=== PATIENT | female | born 1955 | race Caucasian/White ===

== ENCOUNTER 2017-02-04 11:19 | Inpatient (IN) ==
[2017-02-04] MEDS ORDERED: VANCOMYCIN IV PER PHARMACY MISC SCH (12:30)
[2017-02-04] MEDS ORDERED: NS 1,000 ML IV SCH (12:30)
[2017-02-04] MEDS ORDERED: FLAGYL 500 MG/NS 500 MG/100 ML IVPB IV SCH (13:00)
[2017-02-04] MEDS ORDERED: LEVAQUIN 500 MG/D5W 500 MG/100 ML IVPB IV SCH (13:15)
[2017-02-04 13:20] LABS: MANUAL DIFF NEEDED? NO
--- NOTE | 2017-02-04 13:24 | HISTORY AND PHYSICAL ---
61-year-old, white female, presented to our clinic with a right perirectal swelling. Patient had an incision and drainage was done on Tuesday and the pack was removed today. It showed a black eschar with a lot of induration. No evidence of discharge noted. Patient is diabetes noncompliance. She failed to improve with outpatient medical management and going to impending Mary's gangrene. She needs more debridement, IV antibiotics, control the sugar. As a result, a hospital admission was warranted. I discussed with Dr. De Anda and he is going to do the debridement today. As a result, a hospital admission was warranted. PAST MEDICAL HISTORY: Diabetes, COPD, tobacco abuse. PAST SURGICAL HISTORY: Tonsillectomy, hysterectomy, tubal ligation. MEDICINES: Aspirin, lisinopril, glipizide 5 mg daily, lisinopril 5 mg daily. ALLERGIES: Penicillin and reaction to shock, unconsciousness. Celebrex skin rashes and hives. SOCIAL HISTORY: , 2 children. 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 Smoking half a pack a day since 1976. Lives in [place]. No alcohol. FAMILY HISTORY: Father of heart attack at 79. Mom of throat cancer at 60. REVIEW OF SYSTEMS: HEENT: No headache. No vision problem. No earache. No sore throat. Neck: No goiter. No neck pain. No lymphadenopathy. Cardiopulmonary: No chest pain, shortness of breath, PND, orthopnea. Swelling of feet. GI: No nausea, vomiting, abdominal pain, altered bowel habits. No bleeding per rectum or hemorrhoids seen. : No history of hesitancy, frequency, dysuria, hematuria, swelling in the right perirectal area. No claudication symptoms. No swelling of legs. No joint pain. Neurologic: No focal symptoms or weakness. EXAMINATION: She is afebrile. Vitals are stable.HEENT: Within normal limits. Neck: Supple. No lymphadenopathy. No goiter. Chest: Bilateral air entry. Heart: Sounds are regular. Abdomen: Belly is soft, nontender. Good bowel sounds. No masses palpable. Right perirectal area a lot of induration with black eschar noted. Iodoform gauze pack was removed and a lot of induration seen and tenia cruris present and hemorrhoids seen. Extremities: No signs of gangrene. No obvious neurological deficits. INVESTIGATIONS: Pending. ASSESSMENT AND PLAN: 1. Right perirectal abscess. Impending Mary's gangrene. Needs more debridement. Plan is IV antibiotics with vancomycin since the patient is allergic to penicillin with anaphylactic shock and Flagyl. 2. Diabetes on glipizide. Follow up on A1c and sliding scale with insulin coverage. 3. COPD, chronic tobacco abuse. Quit smoking. 4. Reconcile home medications. Discussed with the Dr. Kip De Anda for surgical consult for debridement and will follow up. cc: Sebas Buenrostro MD
[2017-02-04 13:25] LABS: BASO% 0.7 % (0.0-0.8); EOS# 0.07 X1000 (0.0-0.7); EOS% 0.7 % (0.0-10.0); HEMATOCRIT 39.5 % (37.0-47.0); HEMOGLOBIN 13.3 g/dL (12.0-16.0); IMM GRAN# 0.07 X1000 (0.0-0.04); IMM GRAN% 0.7 % (0.0-0.5); LYMPH# 1.52 X1000 (1.2-3.4); LYMPH% 15.3 % (20.5-51.1); MCH 29.8 PG (27-31); MCHC 33.7 g/dL (33-37); MCV 88.4 FL (81-99); MONO# 0.75 X1000 (0.11-0.59); MONO% 7.5 % (1.7-9.3); MPV 11.4 FL (7.4-10.4); NEUT% 75.1 % (42.2-75.2); PLT 295 X1000 (130-400); RBC 4.47 XMIL (4.2-5.4)
[2017-02-04 13:31] LABS: INR 0.99; PROTIME 10.4 Seconds (9.2-11.7)
--- NOTE | 2017-02-04 13:35 | EKG Report ---
Test Performed on : 02/04/2017 1:17:45 PM Test Reason : preop Blood Pressure : / mmHG Vent. Rate : 085 BPM Atrial Rate : 085 BPM P-R Int : 112 ms QRS Dur : 098 ms QT Int : 388 ms P-R-T Axes : 066 012 013 degrees QTc Int : 461 ms Normal sinus rhythm. Possible Left atrial enlargement Borderline ECG No previous ECGs available Confirmed by Alesha VENEGAS, Rishi Mancilla ([id number]) on 02/04/2017 3:32:09 PM
[2017-02-04 13:55] LABS: ALBUMIN 3.4 g/dL (3.5-5.0); CALCIUM 8.9 mg/dL (8.8-10.2); POTASSIUM 4.1 mmol/L (3.5-5.1); TOTAL BILIRUBIN 0.24 mg/dL (0.20-1.00); TOTAL PROTEIN 7.5 g/dL (6.3-8.3)
--- NOTE | 2017-02-04 14:18 | Diag Imaging Result Doc PS360 ---
EXAM: CHEST-2 VIEWS HISTORY: SOB TECHNIQUE: PA and lateral chest COMMENT: There is no evidence of acute cardiac or pulmonary disease and there are no previous studies. IMPRESSION: No acute disease. Electronically signed by Anish Chavez 02/04/2017 2:16 PM
[2017-02-04] MEDS ORDERED: HUMULIN R IV ONE (14:26)
[2017-02-04] MEDS: AZACTAM 1 GM in NS 50 ML IV SCH ×2 (15:31→23:47)
[2017-02-04] MEDS: HUMULIN R SUBQ SCH ×2 (15:35→20:01)
[2017-02-04] MEDS ORDERED: VANCOMYCIN 1.3 GM in NS 250 ML IV ONE (16:00)
--- NOTE | 2017-02-04 16:58 | CONSULTATION ---
DATE OF CONSULTATION: 02/04/2017 CONCLUSION: The patient has gangrenous cellulitis of the perineum and an abscess as well. The patient has a severe penicillin allergy manifested by respiratory arrest . RECOMMENDATIONS: I agree with treating the patient with vancomycin and Flagyl. I have discontinued Levaquin and placed the patient on aztreonam. I have further ordered that the nurse watch the patient during the first dose of aztreonam. DISCUSSION: The patient approximately 10 days ago developed a mass in the perineum. It was painful . She went to outpatient clinic. It was in that outpatient clinic the area had an incision and drainage of what the patient described as an abscess. She was placed on p.o. Levaquin. She came back again to another outpatient service and she was directed to be admitted to the hospital. She is to have surgery later today performed by Dr. Kip De Anda. LABORATORY STUDIES: Thus far show a CBC with a white count of 9950, hemoglobin 12.3, and platelet count 295,000. Creatinine is 1.1. GFR is 50. Glucose was at 486. Chest x-ray showed no acute disease. PAST MEDICAL HISTORY, REVIEW OF SYSTEMS: Eyes and ears: Patient denies difficulty hearing or seeing. Neck: No stiffness. Respiratory: No cough or shortness of breath. Cardiac: No chest pain or palpitations. GI: No nausea, vomiting, or diarrhea. : No dysuria or flank pain. Endocrine: Patient is a diabetic but she does not have thyroid disease. Hematologic: No history of anemia or bleeding tendency. Neurologic: No seizures. No motor or sensory loss. Integument: No rash. The remainder of the patient's review of systems was completed and was negative. 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 She has had a hysterectomy and bilateral salpingo-oophorectomy. PREVIOUS HOSPITALIZATIONS AND OPERATIONS: She has had prior drainage of her perineal abscess. She has had 2 labor and deliveries, a hysterectomy and bilateral salpingo-oophorectomy. MEDICAL DISEASES: Positive for diabetes mellitus and hypertension. INFECTIOUS DISEASE HISTORY: Positive for UTI. Negative for pneumonia. FAMILY HISTORY: Patient is adopted. She does know her sister and her sister has rheumatoid arthritis. SOCIAL HISTORY: [place] She is . She has 4 dogs for pets. ALLERGIES: She is allergic to penicillin manifested by respiratory arrest. MEDICATIONS: At home she takes glipizide and lisinopril regularly. More recently because of the patient's perineal infection she has been on Allamuchy for pain and Levaquin for infection. HABITS: The patient does not smoke cigarettes, drink alcoholic beverages or abuse drugs. PHYSICAL EXAMINATION: Vital signs: Temperature is 98.8 degrees, pulse 89, respirations 16, blood pressure 126/63. Patient weighs 116 pounds. Generally: She is a fairly healthy middle- aged female who is in no acute distress. Head, eyes, ears, nose, and throat: She can hear my spoken words and see near objects. No drainage noted from the nose or ears. Neck: No meningismus. Thorax: No increased AP diameter to the chest. Lungs: Clear to auscultation. Cardiovascular: Heart rate was regular. I had could not feel peripheral pulses in the legs well but the legs were warm and not cyanotic. Abdomen: Soft and nontender. Heart rate is regular. Pelvic exam: In the perineum there was erythema, swelling and a necrotic area. Neurologic: Patient is alert. She can move her extremities. There is no tremor. Her sensation is intact to touch. Her memory, as regarding her medical history is good. Thank you for the consult. cc: MD Sebas Prabhakar MD
[2017-02-04] MEDS ORDERED: HYDROGEN PEROXIDE SOLUTION ONE (17:42)
[2017-02-04] MEDS ORDERED: D5 LR 1,000 ML ONE (18:17)
[2017-02-04] MEDS: MORPHINE ONE ×2 (18:29→18:32)
[2017-02-04 18:39] LABS: URINE CULTURE NEEDED? NO; URINE MICRO REVIEW NEEDED? NO; URINE SOURCE CATH
[2017-02-04] MEDS ORDERED: MORPHINE ONE ×2 (18:42→18:51)
[2017-02-04 18:43] LABS: BILIRUBIN URINE NEGATIVE (NEGATIVE); BLOOD URINE NEGATIVE (NEGATIVE); COLOR YELLOW; GLUCOSE URINE >1000 mg/dL (NEGATIVE); LEUKOCYTES URINE NEGATIVE (NEGATIVE); NITRITE URINE NEGATIVE (NEGATIVE); PH URINE 5.5; PROTEIN URINE NEGATIVE (NEGATIVE); SP GRAVITY URINE 1.031; TURBIDITY URINE CLEAR (CLEAR); UR EPITHELIAL CELLS <10 /HPF (<10); URINE BACTERIA NEGATIVE /HPF; URINE RBC <10 /HPF (<10); URINE WBC <10 /HPF (<10); UROBILINOGEN URINE NORMAL (NORMAL)
[2017-02-04] MEDS ORDERED: D5 LR 1,000 ML IV SCH (19:00)
[2017-02-04] MEDS ORDERED: 1/2 NS 1,000 ML IV SCH (19:00)
[2017-02-04] MEDS ORDERED: FENTANYL ONE (19:23)
[2017-02-04] MEDS ORDERED: DIPRIVAN 1% ONE (19:49)
--- NOTE | 2017-02-04 20:24 | OPERATIVE NOTE ---
PROCEDURE DATE: 02/04/2017 PREOP: Gangrenous changes, perineal wound. PROCEDURE: Debride necrotic perineal wound 5 x 4 x 3 cm with placement of wound vacuum-assisted closure. DESCRIPTION OF PROCEDURE: The patient brought to the operating room. After satisfactory induction of IV and endotracheal anesthesia, Solomon catheter, her perineum was prepped and draped in the appropriate manner. Solomon catheter was placed. The necrotic area was in the right side of the perineum with labial infection. There was significant subcutaneous necrosis and undermining with muscle and fat necrosis as well as skin. The necrotic tissue was sharply debrided. The wound tracks down towards the rectum and is probably representing a fistula. All necrotic material visualized was removed as well as necrotic skin. Hemostasis was obtained by electrocautery. The wound was irrigated with peroxide. Anaerobic and aerobic cultures had been obtained. A wound VAC was subsequently deployed with stoma paste for a satisfactory seal being obtained. The patient had the Solomon left in place. She was subsequently awakened and extubated in the operating room and transferred to recovery. ESTIMATED BLOOD LOSS: Was about 30-40 mL. cc: MD Sebas Flores MD
[2017-02-04] MEDS: FLAGYL 1000 MG/NS 1,000 MG/200 ML IVPB IV SCH (22:19)
[2017-02-05] MEDS: MORPHINE IV PRN (02:52)
[2017-02-05] MEDS: ZOFRAN IV PRN ×2 (02:53→06:43)
[2017-02-05] MEDS: FLAGYL 1000 MG/NS 1,000 MG/200 ML IVPB IV SCH ×3 (05:42→21:10)
[2017-02-05] MEDS: HUMULIN R SUBQ SCH ×4 (06:25→21:06)
[2017-02-05 06:27] LABS: HEMATOCRIT 35.8 % (37.0-47.0); HEMOGLOBIN 11.8 g/dL (12.0-16.0); MCH 29.9 PG (27-31); MCV 90.6 FL (81-99); MPV 11.8 FL (7.4-10.4); RBC 3.95 XMIL (4.2-5.4)
[2017-02-05 06:42] LABS: AGAP 14; BUN 10 mg/dL (8-22); CALCIUM 8.2 mg/dL (8.8-10.2); CHLORIDE 100 mmol/L (98-107); COSMO 285; POTASSIUM 3.8 mmol/L (3.5-5.1); SODIUM 137 mmol/L (136-145); TCO2 23 mmol/L (25-35)
[2017-02-05] MEDS: AZACTAM 1 GM in NS 50 ML IV SCH ×3 (06:45→23:01)
[2017-02-05] MEDS: NORCO-10 PO PRN ×2 (08:43→16:06)
[2017-02-05] MEDS: PRINIVIL PO SCH (10:04)
[2017-02-05] MEDS: GLUCOTROL PO SCH ×2 (10:05→21:10)
[2017-02-05] MEDS: D5 LR 1,000 ML IV SCH ×2 (13:38→23:01)
--- NOTE | 2017-02-05 15:38 | PROGRESS NOTE ---
DATE: 02/05/2017 SUBJECTIVE: Patient is sitting up in bed eating a good lunch. She says she is doing better. OBJECTIVE: vital signs Afebrile. Pulse 73, respirations 16, blood pressure 129/53, O2 saturation on room air to nasal cannula 95-97%.CV: RRR. Cannot rule out a faint 1/6 murmur. Lungs: CTA. Abdomen: Nontender. Extremities: No calf tenderness, cords or edema. LABORATORY STUDIES: Sodium 137, potassium 3.8, chloride 100, CO2 23, BUN 10, creatinine 0.7. Blood sugars ranging 137-486. White count 9.9, hemoglobin 11.8, platelets 248,000. ASSESSMENT: 1. Gangrenous cellulitis of the perineum with abscess formation status post debridement per Dr. De Anda yesterday. 2. Type 2 diabetes mellitus. 3. Hypertension. 4. Chronic obstructive pulmonary disease. 5. Tobacco abuse. PLAN: Continue aztreonam, Flagyl and vancomycin per Dr. Cale Hernandez' recommendation. Decreased down the D5 LR she is on due to her diabetes. Dr. De Anda has placed her back on her glipizide but plans on re-debridement of the area in 2 days. Will take her off that prior to that. Continue sliding scale insulin. Again reduce the IV rate so as not to precipitate hyperglycemia to a great extent during this. Continue antibiotics. cc: MD Sebas Haney MD
[2017-02-05] MEDS: VANCOMYCIN 1 GM/NS 1 GM/250 ML IVPB IV SCH (17:24)
[2017-02-06] MEDS: ZOFRAN IV PRN ×3 (00:03→23:46)
[2017-02-06] MEDS ORDERED: PHENERGAN PR PRN (02:21)
[2017-02-06] MEDS ORDERED: PHENERGAN IV PRN (02:39)
[2017-02-06] MEDS ORDERED: SODIUM CHLORIDE 0.9% INJ PRN (02:40)
[2017-02-06] MEDS ORDERED: VANCOMYCIN 1 GM/NS 1 GM/250 ML IVPB IV SCH (04:00)
[2017-02-06] MEDS: FLAGYL 1000 MG/NS 1,000 MG/200 ML IVPB IV SCH ×3 (05:21→21:33)
[2017-02-06] MEDS: AZACTAM 1 GM in NS 50 ML IV SCH ×3 (06:20→23:46)
[2017-02-06] MEDS: HUMULIN R SUBQ SCH ×4 (06:20→21:33)
[2017-02-06] MEDS: PRINIVIL PO SCH (10:41)
[2017-02-06] MEDS: GLUCOTROL PO SCH (10:42)
[2017-02-06] MEDS: NORCO-10 PO PRN ×2 (10:42→23:17)
--- NOTE | 2017-02-06 14:26 | PROGRESS NOTE ---
DATE: 02/06/2017 SUBJECTIVE: Patient is having some nausea and vomiting x1 only occurring around midnight each morning. Otherwise doing well. Seems to be in response to IV antibiotics she receives prior to the onset of her nausea. OBJECTIVE: Vital signs: Afebrile, pulse 85, respirations 17, blood pressure 144/75, O2 saturation on room air 97%. CV: RRR without murmur. Lungs: CTA. Abdomen: Soft, nontender. No mass or organomegaly. Extremities: No calf tenderness, cords, or edema. ASSESSMENT: 1. Gangrenous cellulitis peritoneum with previous abscess formation status post debridement and incision and drainage of abscess per Dr. De Anda a couple days ago. 2. Nausea and vomiting. Likely related to aztreonam or Flagyl as being given around 11 p.m. nightly. 3. Type 2 diabetes mellitus. 4. Hypertension. 5. Chronic obstructive pulmonary disease. 6. Tobacco abuse. PLAN: Dr. De Anda has ordered Phenergan as needed for nausea and vomiting. It appears she will have to take these antibiotics for now so will treat that nausea with Phenergan as required. Going to hold her Glucotrol as there is consideration for re-debridement of the perineal area tomorrow per Dr. De Anda. Will continue SSI to control her blood sugars at this point in time, as she may be NPO for some period. Continue IV antibiotics currently being administered. cc: MD Sebas Haney MD
[2017-02-06] MEDS: VANCOMYCIN 1 GM/NS 1 GM/250 ML IVPB IV SCH (18:04)
[2017-02-06] MEDS: D5 LR 1,000 ML IV SCH (23:46)
[2017-02-07] MEDS: FLAGYL 1000 MG/NS 1,000 MG/200 ML IVPB IV SCH (05:05)
[2017-02-07] MEDS: ZOFRAN IV PRN (06:26)
[2017-02-07] MEDS: AZACTAM 1 GM in NS 50 ML IV SCH (06:26)
[2017-02-07] MEDS: HUMULIN R SUBQ SCH ×5 (06:33→21:27)
--- NOTE | 2017-02-07 09:05 | PROGRESS NOTE ---
DATE: 02/07/2017 SUBJECTIVE: Interval history was reviewed. Patient was seen by Dr. Hernandez and Dr. De Anda. Debridement of the right perirectal abscess done. Wound cultures grew micrococcus species. Complains of nausea from IV antibiotic, aztreonam. REVIEW OF SYSTEMS: The patient has been n.p.o. All none reported. PHYSICAL EXAMINATION: Vital Signs: She is afebrile. Vitals are stable. HEENT: Within normal limits. Neck: Supple. No lymphadenopathy. No goiter. Chest: Bilateral air entry. Heart: Sounds are regular. Abdomen: Belly is soft, nontender. Good bowel sounds. No masses palpable. Extremities: No peripheral edema or cyanosis. Integument: Wound VAC was seen on the right perianal area. INVESTIGATIONS: A1c was 15.0. Blood sugars are running high. Wound cultures micrococcus. Chest x-ray, no acute disease. ASSESSMENT AND PLAN: 1. Right perirectal abscess. Impending gangrene. Continue on IV vancomycin and Flagyl. Waiting for second debridement. 2. Uncontrolled diabetes. Currently on sliding scale with insulin coverage. 3. Nausea from aztreonam, will discontinue. Discuss with Dr. Hernandez. Once again thanks for Dr. Hernandez and Dr. De Anda consults. Discussed with the family and will follow up. cc: Sebas Buenrostro MD
[2017-02-07] MEDS ORDERED: LR 1,000 ML ONE ×2 (09:18→12:21)
[2017-02-07] MEDS ORDERED: XYLOCAINE-MPF 2% ONE ×2 (09:18→12:21)
--- NOTE | 2017-02-07 11:04 | PROGRESS NOTE ---
DATE: 02/07/2017 PRESENT ILLNESS: The patient has a perineal cellulitis and abscess. Also, there was an area of necrosis her as well. This is all been surgically treated by Dr. De Anda. MEDICATIONS: The patient was on vancomycin and Flagyl and aztreonam. The patient had extreme nausea after getting aztreonam. PHYSICAL EXAMINATION: Vital Signs: Temperature is 98.1 degrees, pulse 83, respirations 16, blood pressure 162/66. Generally: The patient looks comfortable. She is in no acute distress. Lungs: Clear to auscultation. Cardiovascular: Regular heart rate. Abdomen: Soft and nontender. Pelvic exam: The perineum was less swollen and erythematous. The VAC is in place over the wound. LABORATORY AND X-RAY: Culture from the perineal abscess grew micrococcus. The patient's CBC today shows a white count of 9910, hemoglobin 11.8, and platelet count 248,000. Creatinine is 0.7. GFR is greater than 60. As mentioned above, the culture grew micrococcus. ASSESSMENT AND PLAN: The patient has had surgical treatment of her perineal cellulitis abscess and necrosis. Overall she is improving. I agree with Dr. Buenrostro stopping the patient's aztreonam because it caused the patient to have so much nausea, and in addition, we have not isolated any gram-negative deacon organism. Also the anaerobic cultures are negative. Therefore, I think we can stop Flagyl and continue treatment with vancomycin as a single agent. COMORBIDITIES: The patient is a diabetic. cc: MD Sebas Prabhakar MD MTDD
[2017-02-07] MEDS ORDERED: DIPRIVAN 1% ONE (12:10)
[2017-02-07] MEDS ORDERED: TORADOL ONE (12:21)
[2017-02-07] MEDS ORDERED: NS 500 ML ONE (12:21)
[2017-02-07] MEDS ORDERED: NS 1,000 ML ONE (12:21)
[2017-02-07] MEDS ORDERED: MORPHINE ONE (12:34)
[2017-02-07] MEDS: PRINIVIL PO SCH (13:07)
[2017-02-07] MEDS: VANCOMYCIN 1 GM/NS 1 GM/250 ML IVPB IV SCH (17:21)
--- NOTE | 2017-02-07 17:41 | OPERATIVE NOTE ---
PROCEDURE DATE: 02/07/2017 PREOPERATIVE DIAGNOSIS: History of gangrene of the perineum. PROCEDURE: Wound vacuum assisted closure removal, bit of further debridement, but basically major improvement since last week. SURGEON: Kip De Anda MD DESCRIPTION OF PROCEDURE: The patient was brought to the operating room. After satisfactory induction of IV and LMA anesthesia, [facility]. The wound VAC was removed revealing satisfactory granulation tissue and only minimal amounts of further necrosis. This was prepped, draped, sharply debrided. The wound VAC was redeployed with satisfactory seal. The patient was subsequently awakened and extubated in the operating room and transferred to recovery. cc: MD Sebas Flores MD
[2017-02-07] MEDS: PERIDEX MT SCH (21:22)
[2017-02-07] MEDS: NORCO-10 PO PRN (23:00)
[2017-02-08] MEDS: HUMULIN R SUBQ SCH ×4 (06:28→20:14)
--- NOTE | 2017-02-08 07:15 | PROGRESS NOTE ---
DATE: 02/08/2017 HISTORY: The patient is status post surgical incision, drainage, and debridement of gangrenous cellulitis and abscess of the perineum. Surgery was performed by Dr. De Anda. MEDICATIONS: The patient is receiving vancomycin as a single agent. PHYSICAL EXAMINATION: Vital Signs: Temperature is 98.6 degrees, pulse 76, respirations 16, blood pressure 142/56. Generally, this is a fairly healthy-appearing, middle-aged female. She is in no acute distress. Lungs clear to auscultation. Cardiovascular: Regular heart rate. Abdomen is soft and nontender. Pelvic Examination: The perineum does not even seem swollen now, and it is not erythematous. The VAC is in place. LABORATORY DATA AND X-RAY: There is no new x-ray today and, also, there is no new lab for today. ASSESSMENT AND PLAN: The patient previously grew micrococcus from the wound. She is receiving vancomycin as a single agent now. I discussed with Dr. De Anda the patient's case, and I think it would be reasonable a let her go home today. I would suggest sending her home on doxycycline 100 mg p.o. every 12 hours for a total of 10 days of treatment. The patient's comorbidities include the following: She is a diabetic. cc: MD Sebas Prabhakar MD
[2017-02-08] MEDS: PRINIVIL PO SCH (09:33)
[2017-02-08] MEDS: PERIDEX MT SCH ×2 (09:33→20:37)
[2017-02-08] MEDS: GLUCOTROL PO SCH ×2 (09:34→20:37)
[2017-02-08] MEDS: NORCO-10 PO PRN (15:26)
[2017-02-08] MEDS: DIFLUCAN PO SCH (15:26)
[2017-02-08] MEDS: VANCOMYCIN 1 GM/NS 1 GM/250 ML IVPB IV SCH (19:01)
--- NOTE | 2017-02-08 22:35 | PROGRESS NOTE ---
DATE: 02/08/2017 SUBJECTIVE: The patient had a second debridement done by Dr. De Anda. Wound VAC was applied. Wound cultures grew candidiasis and micrococcus. Patient developed nausea with aztreonam. She is noncompliant. A1c 15.0. Patient is not following the instructions. Blood sugars are running around 200. REVIEW OF SYSTEMS: None reported. PHYSICAL EXAMINATION: Vital Signs: Stable. Pulse ox 99% on room air. HEENT: Within normal limits. Neck: Supple. No lymphadenopathy. No goiter. Chest: Clear to auscultation. Heart: Sounds are regular. Abdomen: Belly is soft, nontender. Good bowel sounds. Extremities: No edema, cyanosis, clubbing. Neurologic: Nonfocal. ASSESSMENT AND PLAN: 1. Right perirectal abscess, with impending gangrene, status post debridement. Doing very well. Continue on vancomycin and Flagyl. 2. Uncontrolled diabetes. Increased the glipizide to 10 mg p.o. b.i.d. Discontinue IV fluids. 3. Candidiasis infection. Diflucan 200 daily. Keep the blood sugar level around 150. 4. Ongoing tobacco abuse. Quit smoking. LEVEL OF DOCUMENTATION: 25 minutes. cc: Sebas Buenrostro MD
[2017-02-09] MEDS: HUMULIN R SUBQ SCH ×4 (06:23→21:43)
--- NOTE | 2017-02-09 08:12 | PROGRESS NOTE ---
DATE: 02/09/2017 PRESENT ILLNESS: The patient is status post surgical incision, drainage, and debridement of a gangrenous cellulitis and abscess involving the perineum. The surgery was performed by Dr. De Anda. MEDICATIONS: The patient was on vancomycin as a single agent. Yesterday, I added fluconazole because luisa was isolated from the patient's wound as well. PHYSICAL EXAMINATION: Vital Signs: Temperature is 98.6 degrees, pulse 82, respirations 18, blood pressure 171/80. General: This is a fairly healthy-appearing, middle-aged female who is in no acute distress. Lungs: Clear to auscultation. Cardiovascular: Heart rate is regular. Abdomen: Soft and nontender. Pelvic Examination: The patient's perineum is not swollen. There is no erythema. The VAC is in place. LAB AND X-RAY: The only lab studies from today include a glucose which was 126 and a creatinine which is 0.5. Also, as mentioned above, Luisa dubliniensis has been isolated from the patient's wound in addition to micrococcus. ASSESSMENT AND PLAN: I have discussed the case with Dr. De Anda. He indicates that he will be sending the patient home without the VAC in place. I have written a prescription for doxycycline 100 mg by mouth every 12 hours and fluconazole 200 mg daily, both to be given for 10 days. The patient will have a followup with Dr. De Anda. COMORBIDITIES: She is a diabetic. I am available to see the patient on a p.r.n. basis. cc: MD Sebas Prabhakar MD
[2017-02-09] MEDS: MORPHINE IV PRN (08:19)
[2017-02-09] MEDS: PERIDEX MT SCH ×2 (08:53→21:43)
[2017-02-09] MEDS: PRINIVIL PO SCH (08:54)
[2017-02-09] MEDS: GLUCOTROL PO SCH ×2 (08:54→21:42)
[2017-02-09] MEDS: DIFLUCAN PO SCH (08:54)
[2017-02-09] MEDS: VANCOMYCIN 1,300 MG in NS 250 ML IV SCH (13:31)
--- NOTE | 2017-02-09 19:22 | PROGRESS NOTE ---
DATE: 02/09/2017 SUBJECTIVE: The patient is doing very well. Tolerating diet very well. Blood sugar is around 200. Discuss[address] with Dr. De Anda. OBJECTIVE: Vital signs: Vitals are stable. HEENT: Exam within normal limits. Neck: Supple. Chest: Clear. Cardiac: Heart sounds are regular. Belly: Soft, nontender. Good bowel sounds. Skin: Right perineal area wound VAC is still placed. Wound cultures show luisa and micrococcus. ASSESSMENT AND PLAN: 1. Type 2 diabetes. Glipizide 10 p.o. b.i.d. Will follow up on blood sugars. 2. Will continue with wound VAC and Solomon catheter. Continue on vancomycin and Flagyl. 3. Luisa. Diflucan. 4. Hopefully she will be discharged home tomorrow. Will discuss with Dr. Cale Hernandez as well as Dr. De Anda about the plan of care with the antibiotics. In the meantime, she needs to control the diabetes. LEVEL OF CARE: Fifteen minutes. cc: Sebas Buenrostro MD
[2017-02-10] MEDS: VANCOMYCIN 1,300 MG in NS 250 ML IV SCH (06:13)
[2017-02-10] MEDS: HUMULIN R SUBQ SCH ×2 (06:15→12:08)
[2017-02-10 07:45] VITALS: BP 148/104
[2017-02-10] MEDS: PRINIVIL PO SCH (08:01)
[2017-02-10] MEDS: PERIDEX MT SCH ×2 (08:01→08:02)
[2017-02-10] MEDS: GLUCOTROL PO SCH (08:01)
[2017-02-10] MEDS: DIFLUCAN PO SCH (08:01)
--- NOTE | 2017-02-10 22:20 | DISCHARGE SUMMARY ---
ADMISSION DATE: 02/04/2017 DISCHARGE DATE: 02/10/2017 DISCHARGING DIAGNOSIS: Right perirectal abscess with impending gangrene. SECONDARY DIAGNOSES: 1. Uncontrolled diabetes. A1c 15. 2. Chronic obstructive pulmonary disease. 3. Chronic tobacco abuse. CONSULTANTS: 1. Kip De Anda MD. 2. Cale Hernandez MD. PROCEDURES: Status post debridement x2 along with the wound VAC. BRIEF HISTORY: Please see the H and P that was done on 02/04/2017. In brief, she is a 61-year- old white female, admitted to the hospital for a right perirectal abscess close to the labia. Initially was treated outpatient with incision and drainage with foul-smelling gangrene. The patient was seen by Dr. De Anda, did incision and drainage along with a wound VAC. He did debridement twice. The patient was started on p.o. vancomycin and Flagyl, aztreonam. She could not tolerate aztreonam due to significant nausea. Blood sugars were running high, increased glipizide 10 p.o. b.i.d. A1c 15. Patient was advised to quit smoking. Wound cultures grew micrococcus species and candidiasis. Dr. Hernandez wants to give her 10 days of doxycycline as well as, Diflucan. At the time of discharge, patient is stable. LABORATORIES: CBC: White cell count 9.9, hematocrit 35, platelets 248,000. SMA 7: Sodium 137, potassium 3.8, chloride 100, BUN 10, creatinine 0.7. Calcium 8.2. DISCHARGE INSTRUCTIONS FOLLOWS: 1. Glipizide 5 mg p.o. b.i.d. 2. Lisinopril 5 mg daily. 3. Doxycycline 100 p.o. b.i.d. 4. Fluconazole 200 mg daily. 5. Glucotrol 10 mg p.o. b.i.d. 6. Follow up with Dr. De Anda on 02/15/2017 as well as in my office in 2 weeks. cc: MD Cale Goldman MD Hugh Nabers
== END 2017-02-10 14:39 | disposition home health service (06) ==
LOC: DIRADM 11:19 → 4N 11:58
PROVIDERS: ADMIT Internal Medicine; ATTEND Internal Medicine